=== PATIENT | female | born 1980 | race African-American/Black ===

== ENCOUNTER 2016-09-25 09:04 | Emergency (ER) | payer OTHER ==
[~2016-09-25] VITALS: Ht 157.5 cm; Wt 91.6 kg
[~2016-09-25 09:04] MED LIST: EXCEDRIN CAPLE1 EACH; IBUPROFEN 600600 M1; NAPROSYN500 MG PO; NOHOMEMEDICATIONS; PHENERGAN 25 MG25 M1 PO; PREDNISONE 20 M20 MG PO; PRENATAL COMPL1 EACH PO; TOBRAMYCIN SULFA5 ML OP; ZOFRAN ODT4 MG PO; ZPAK PO
[2016-09-25 09:05] VITALS: BP 152/96
[2016-09-25] MEDS ORDERED: ERYTHROMYCIN E3.5 G3 OPHTHALMIC (09:26)
== END 2016-09-25 09:43 | disposition home or self-care (01) ==
LOC: ER 09:04
DX: H10.89 Other conjunctivitis (principal); Z98.890 Other specified postprocedural states; Z88.0 Allergy status to penicillin

== ENCOUNTER 2017-08-08 17:51 | Emergency (ER) | payer OTHER ==
[~2017-08-08] VITALS: Ht 157.5 cm; Wt 96.6 kg
[~2017-08-08 17:51] MED LIST changes: +ERYTHROMYCIN E3.5 G3 OPHTHALMIC
[2017-08-08 18:31] LABS: URINE BILIRUBIN NEGATIVE (Negative); URINE BLOOD TRACE (Negative); URINE CLARITY CLOUDY; URINE COLOR YELLOW; URINE GLUCOSE-RANDOM* NEGATIVE (Negative); URINE KETONES NEGATIVE (Negative); URINE NITRITE-REFLEX NEGATIVE (Negative); URINE PROTEIN (DIPSTICK) 1+ (Negative); URINE UROBILINOGEN 0.2 E.U./dl (0.2-1.0)
[2017-08-08 18:33] LABS: URINE LEUKOCYTES-REFLEX 1+ (Negative)
[2017-08-08 18:43] LABS: BACTERIA-REFLEX >30 Many /HPF (None Seen); CRYSTALS None Seen /LPF (None Seen); SQUAMOUS 4-10 Moderate /LPF (0-3); URINE RBC None Seen /HPF (0-2); URINE WBC-REFLEX >25 Many /HPF (0-5)
[2017-08-08] MEDS ORDERED: KEFLEX500 M1 PO (18:47)
== END 2017-08-08 18:57 | disposition home or self-care (01) ==
LOC: ER 17:51
PROVIDERS: Emergency Medicine
DX: N39.0 Urinary tract infection, site not specified (principal); Z88.0 Allergy status to penicillin